=== PATIENT | female | born 1945 | race African-American/Black ===

== ENCOUNTER 2016-12-27 08:10 | Emergency (ER) | payer BC ==
[~2016-12-27] VITALS: Ht 167.6 cm; Wt 72.0 kg
[2016-12-27] MEDS ORDERED: TRAMADOL 50MG TABLET PO ONE (08:45)
[2016-12-27] MEDS ORDERED: KETOROLAC 60MG/2ML VIAL IM ONE (08:45)
[2016-12-27 09:15] VITALS: BP 176/90
[2016-12-27] MEDS ORDERED: DEXAMETHASONE 10MG/ML 1ML VIAL IM ONE (10:00)
== END 2016-12-27 10:26 | disposition home or self-care (01) ==
LOC: ER 08:33
DX: G89.29 Other chronic pain (principal); M54.5 Low back pain; I10 Essential (primary) hypertension; E78.00 Pure hypercholesterolemia, unspecified; Z90.710 Acquired absence of both cervix and uterus; Z98.890 Other specified postprocedural states
CPT/HCPCS: 96372; 99284; J1100; J1885

== ENCOUNTER 2016-12-31 13:43 | Emergency (ER) | payer BC ==
[~2016-12-31] VITALS: Ht 167.6 cm; Wt 73.0 kg
[2016-12-31] MEDS ORDERED: KETOROLAC 30MG/ML VIAL IM ONE (17:45)
[2016-12-31 17:59] VITALS: BP 165/80
== END 2016-12-31 19:17 | disposition left against medical advice (07) ==
LOC: ER 13:43
DX: M54.6 Pain in thoracic spine (principal); I10 Essential (primary) hypertension; E78.00 Pure hypercholesterolemia, unspecified
CPT/HCPCS: 71020; 96372; 99284; J1885

== ENCOUNTER 2018-02-04 14:35 | Emergency (ER) | payer BC ==
[~2018-02-04] VITALS: Ht 165.1 cm; Wt 78.0 kg
[2018-02-04 16:30] VITALS: BP 176/92
== END 2018-02-04 17:05 | disposition home or self-care (01) ==
LOC: ER 14:35
DX: S80.862A Insect bite (nonvenomous), left lower leg, initial encounter (principal); S80.861A Insect bite (nonvenomous), right lower leg, initial encounter; E78.00 Pure hypercholesterolemia, unspecified; I10 Essential (primary) hypertension; Z90.710 Acquired absence of both cervix and uterus; Z88.0 Allergy status to penicillin; W57.XXXA Bitten or stung by nonvenomous insect and other nonvenomous arthropods, initial encounter; Y93.89 Activity, other specified; Y92.89 Other specified places as the place of occurrence of the external cause; Y99.8 Other external cause status
CPT/HCPCS: 99281

== ENCOUNTER 2023-05-28 07:46 | Emergency (ER) | payer BC, MEDICARE ==
[~2023-05-28] VITALS: Ht 167.6 cm; Wt 68.0 kg
[2023-05-28 08:09] VITALS: O2SAT 97
[2023-05-28 13:29] LABS: BASOPHILS % 1.1 % (0.0-2.0); EOSINOPHILS % 0.8 % (0.0-5.0); HEMATOCRIT. 38.8 % (36.0-48.0); HEMOGLOBIN. 12.9 g/dL (12.0-16.0); LYMPHOCYTES % 41.8 % (20.0-50.0); MEAN CORPUSCULAR HEMOGLOBIN 27.9 pg (28.0-32.0); MEAN CORPUSCULAR HGB CONC 33.3 g/dL (31.0-37.0); MEAN CORPUSCULAR VOLUME 83.9 fL (81.0-99.0); MEAN PLATELET VOLUME 8.9 fl (7.4-10.4); MONOCYTES % 9.3 % (2.0-8.0); PLATELET 229 x1000/uL (130-400); RED BLOOD CELL COUNT 4.63 mill/uL (4.2-5.4); RED CELL DISTRIBUTION WIDTH 14.8 % (11.6-14.6); WHITE BLOOD COUNT 4.9 x1000/uL (4.5-11.0)
[2023-05-28 13:32] LABS: CLARITY URINE CLEAR (CLEAR); COLOR URINE YELLOW (YELLOW); GLUCOSE URINE NEGATIVE (NEGATIVE); KETONES URINE TRACE (NEGATIVE); LEUKOCYTE ESTERASE URINE NEGATIVE (NEGATIVE); NITRITE URINE NEGATIVE (NEGATIVE); OCCULT BLOOD URINE NEGATIVE (NEGATIVE); PH URINE 6.5 (4.5-8.0); PROTEIN URINE TRACE (NEGATIVE)
[2023-05-28 13:58] LABS: ALANINE AMINOTRANSFERASE 16 IU/L (10-49); ALBUMIN 4.5 g/dL (3.2-4.8); ASPARTATE AMINOTRANSFERASE 19 IU/L (<34); BILIRUBIN TOTAL 0.7 mg/dL (0.1-1.0); CALCIUM 9.8 mg/dL (8.7-10.4); CARBON DIOXIDE 23 mEq/L (21-32); CHLORIDE 109 mEq/L (98-107); CREATININE 0.6 mg/dL (0.6-1.0); GLUCOSE 88 mg/dL (70-105); POTASSIUM 3.6 mEq/L (3.5-5.1); PROTEIN TOTAL 7.7 g/dL (6.0-8.3); SODIUM 144 mEq/L (136-145); UREA NITROGEN BLOOD 12 mg/dL (9-23)
[2023-05-28 14:14] LABS: BACTERIA URINE NONE SEEN; RBC URINE 0-2 /hpf (0-2); SQUAMOUS EPITHELIAL CELL URINE FEW /lpf (RARE/1+); WBC URINE 0-2 /hpf (0-2); YEAST URINE NONE SEEN
[2023-05-28] MEDS ORDERED: BENZ100C86 MT (14:54)
[2023-05-28 15:04] VITALS: BP 143/83; PULSE 97; RESP 18; TEMP 98.7
== END 2023-05-28 15:06 | disposition home or self-care (01) ==
LOC: ER 07:46
DX: R32 Unspecified urinary incontinence (principal); R05.9 Cough, unspecified; E78.00 Pure hypercholesterolemia, unspecified; I10 Essential (primary) hypertension; Z90.710 Acquired absence of both cervix and uterus; Z98.890 Other specified postprocedural states; Z88.0 Allergy status to penicillin
CPT/HCPCS: 36415; 80053; 81003; 85025; 99283